=== PATIENT | male | born 1975 | race Caucasian/White ===

== ENCOUNTER → 2021-01-19 | Outpatient (CLI) | payer SELFPAY ==
--- NOTE | 2021-01-19 16:21 | Diagnostic Imaging Report ---
INDICATION: Family history of heart disease. CT cardiac calcium scoring study performed in the routine fashion without contrast. Raw data images are provided but do not cover the entirety of the chest. Visualized portions of mediastinum and tanja are unremarkable. The visualized portions of the aorta are non-aneurysmal. Visualized portions of the lung hardy show no acute infiltrate or discrete nodule. The entirety of the lung hardy are not included. There are 2 minimal foci of calcification in the proximal LAD, there is no significant calcification of the coronary artery territories elsewhere. Calculated calcium score of the LAD lesions was 3.3. Score of 0 was obtained of the left main, left circumflex carotid, and right coronary artery. IMPRESSION: Coronary calcium score was 3.3, compatible with minimal plaque burden. There are 2 punctate foci of calcium in the proximal LAD. Raw data images showed no significant incidental finding. Dictated by: Dictated on workstation # [id number]
== END ==
LOC: RAD FS 15:29
PROVIDERS: ATTEND Registered Nurse Emergency
DX: Z82.49 Family history of ischemic heart disease and other diseases of the circulatory system (principal)
CPT/HCPCS: 75571

== ENCOUNTER → 2021-01-20 | Outpatient (CLI) | payer OTHER ==
[2021-01-20 12:55] LABS: BILIRUBIN,TOTAL 0.5 MG/DL (0.1-1.0); CALCIUM 9.3 MG/DL (8.5-10.1); CREATININE SERUM 0.83 MG/DL (0.60-1.30); POTASSIUM 4.3 MMOL/L (3.6-5.0)
[2021-01-20 12:56] LABS: ALBUMIN 4.3 GM/DL (3.2-4.5); TOTAL PROTEIN 7.9 GM/DL (6.4-8.2)
== END ==
LOC: LAB FS 07:46
PROVIDERS: ATTEND Registered Nurse Emergency
DX: Z00.00 Encounter for general adult medical examination without abnormal findings (principal)
CPT/HCPCS: 36415; 80053; 80061